=== PATIENT | male | born 1945 | race Caucasian/White ===

== ENCOUNTER → 2016-09-01 | Outpatient (CLI) | payer MEDICARE, BC ==
--- NOTE | ~2016-09-01 | ENPV ---
Vascular Lower Arterial Plethysmography Procedure Demographics Patient Name BRENDA MARTINEZ Date of Study 09/01/2016 Patient Number [id number] Gender Male Date of 1945 Age 71 Visit Number [id number] Height Accession Number [id number] Weight Room Number BSA BMI Referring El Woody MD Interpreting Teto Charlton MD Physician Physician Physician Ordering Physician El Gillespie MD Marketing Strategy Analyst Christel Flores BS, RT Conclusions Summary Ankle brachial index on the right is .97 no significant arterial disease at rest. Ankle brachial index on the left is 1.08 no significant arterial disease at rest. With exercise, the left ankle brachial index did not drop more than 20% confirming the absence of significant peripheral arterial disease. With exercise, the right ankle brachial index dropped to .8 Procedure Type of Study: Extremities Arteries:Lower Arterial Plethysmography, Ankle/Brachial Indicies. Indications for Study:Pain in Limb. Additional Indications:Hip pain bilaterally Patient Status:Routine. Study Location:Vascular Lab. Technical Quality:Adequate visualization. Velocities are measured in cm/s ; Diameters are measured in cm Pressures + ++--------+-----+----+--------+-----+ ! !!Right ! !Left! ! ! + ++--------+-----+----+--------+-----+ !Location !!Pressure!Ratio! !Pressure!Ratio! + ++--------+-----+----+--------+-----+ !Ankle PT !!139 !0.97 ! !155 !1.08 ! + ++--------+-----+----+--------+-----+ !DP !!134 !0.94 ! !145 !1.01 ! + ++--------+-----+----+--------+-----+ !Great Toe !!110 !0.77 ! !100 !0.7 ! + ++--------+-----+----+--------+-----+ - Brachial Pressure:Right: 143.Left:134. - LUIS:Right: 0.97.Left: 1.08. Plethysmographic Digit Evaluation +---------++--------+-----+ ++--------+-----+ + ! !!Right ! !Left !! ! ! ! +---------++--------+-----+ ++--------+-----+ + !Location !!Pressure!Ratio!PPG Wave Form !!Pressure!Ratio!PPG Wave Form ! +---------++--------+-----+ ++--------+-----+ + !Great Toe!!110 !0.77 ! !!100 !0.7 ! ! +---------++--------+-----+ ++--------+-----+ + Post Exercise Exercise Time: 3 min. + +----+ +---------+--------+ + + ! ! !Right ! !Left ! ! ! + +----+ +---------+--------+ + + !Location ! !Pressure !Ratio ! !Pressure !Ratio ! + +----+ +---------+--------+ + + !PROPERTY ECONOMIST ! !123 !0.8 ! !159 !1.04 ! + +----+ +---------+--------+ + + - Brachial Pressure:Right: 153. - LUIS:Right: 0.8.Left: 1.04. Signature dtt: RADHA STEWART dtiva: 09/01/16 0949 Physician Self Edit
== END | disposition disaster alternative care site (69) ==
LOC: GCAR 09:25
DX: M25.551 Pain in right hip (principal); M25.552 Pain in left hip